=== PATIENT | female | born 1995 | race Caucasian/White ===

== ENCOUNTER 2017-01-18 10:04 | Inpatient (IN) | payer BC, OTHER ==
[~2017-01-18] VITALS: Ht 157.5 cm; Wt 77.3 kg
[2017-01-18] MEDS ORDERED: SODIUM CHLORIDE 0.9% 1,000ML IVBOLUS ONE (10:30)
[2017-01-18] MEDS ORDERED: SODIUM CHLORIDE FLUSH 10ML SYR IVF ONE (10:30)
[2017-01-18 11:05] LABS: HEMATOCRIT 34.3 % (34.6-47.8); HEMOGLOBIN 11.4 g/dL (11.7-16.4); WHITE BLOOD COUNT 16.7 x10^3/uL (3.4-10)
[2017-01-18 11:12] LABS: ASPARTATE AMINO TRANSFERASE 21 U/L (15-37); BLOOD UREA NITROGEN 6 mg/dL (7-18)
[2017-01-18] MEDS ORDERED: MISOPROSTOL 200 MCG TABLET ONE ×2 (11:48→13:37)
[2017-01-18] MEDS ORDERED: LACTATED RINGERS 1,000 ML IV SCH (12:41)
[2017-01-18] MEDS ORDERED: OXYTOCIN 30U/ 0.9% NaCL 500ML 500 ML IV ONE (12:41)
[2017-01-18] MEDS ORDERED: OXYTOCIN 30U/ 0.9% NaCL 500ML 500 ML IV PRN (12:41)
[2017-01-18] MEDS ORDERED: FENTANYL PF 100 MCG/2ML ONE ×2 (12:54→13:43)
[2017-01-18] MEDS ORDERED: MISOPROSTOL 200 MCG TABLET PR PRN (13:00)
[2017-01-18] MEDS ORDERED: FENTANYL PF 100 MCG/2ML IVPush ONE (13:00)
[2017-01-18] MEDS ORDERED: RHOGAM FROM BLOOD BANK 1 NOTE EA IM/IV PRN (13:00)
[2017-01-18] MEDS ORDERED: PREN1TAB60 PO (13:21)
[2017-01-18] MEDS ORDERED: FAMO20TA37 PO (13:22)
[2017-01-18 13:23] VITALS: BP 93/76
[2017-01-18] MEDS ORDERED: METHYLERGONOVINE 0.2 MG/ML IM ONE (13:38)
[2017-01-18] MEDS ORDERED: SILVER NITRATE STICK TP ONE (13:38)
[2017-01-18] MEDS ORDERED: OXYTOCIN 10 UNITS/ML, 1ML ONE ×2 (13:38→13:58)
[2017-01-18] MEDS ORDERED: PROPOFOL 10 MG/ML, 20ML ONE (13:43)
[2017-01-18] MEDS ORDERED: SUCCINYLCHOLINE 20 MG/ML, 10ML ONE (13:58)
[2017-01-18] MEDS ORDERED: ROCURONIUM 10 MG/ML ONE (13:58)
[2017-01-18] MEDS ORDERED: ONDANSETRON 2MG/ML, 2ML ONE (13:58)
[2017-01-18] MEDS ORDERED: OXYcodone 5 MG/5 ML ORAL.SOL UDC PO PRN (14:00)
[2017-01-18] MEDS ORDERED: PROMETHAZINE 25 MG/ML, 1ML IV PRN (14:00)
[2017-01-18] MEDS ORDERED: FENTANYL PF 100 MCG/2ML IV PRN (14:00)
[2017-01-18] MEDS ORDERED: ACETAMINOPHEN 325 MG TABLET PO PRN (14:00)
[2017-01-18] MEDS ORDERED: MEPERIDINE/PF 25MG/0.5ML IVPush PRN (14:00)
[2017-01-18] MEDS ORDERED: HYDROmorphone 1 MG/ML, 1ML IV PRN (14:00)
[2017-01-18] MEDS ORDERED: LABETALOL 5MG/ML, 20ML IV PRN (14:00)
[2017-01-18] MEDS ORDERED: ONDANSETRON 2MG/ML, 2ML IVPush PRN (14:00)
[2017-01-18] MEDS ORDERED: hydrALAzine 20 MG/ML, 1ML IV PRN (14:00)
[2017-01-18] MEDS ORDERED: DEXAMETHASONE 4 MG/ML, 1ML ONE (14:11)
[2017-01-18] MEDS ORDERED: CARBOPROST TROMETHAMINE 250 MCG/ML, 1ML IM ONE (14:21)
[2017-01-18] MEDS ORDERED: ACETAMINOPHEN 650 MG/20.3 ML UDC ONE (15:23)
[2017-01-18 15:44] LABS: HEMATOCRIT 24.5 % (34.6-47.8); HEMOGLOBIN 8.3 g/dL (11.7-16.4)
[2017-01-18 16:00] VITALS: BP 110/60
[2017-01-18 18:09] LABS: HEMATOCRIT 26.1 % (34.6-47.8); HEMOGLOBIN 8.6 g/dL (11.7-16.4); WHITE BLOOD COUNT 19.7 x10^3/uL (3.4-10)
[2017-01-18] MEDS ORDERED: OXYC-302 PO (21:26)
== END 2017-01-18 21:50 | disposition home or self-care (01) | DRG 770 ==
LOC: ED 12:24 → LDIP 12:26 → OBSVTOIN 12:41 → LDIP 16:13
PROVIDERS: ADMIT Obstetrics & Gynecology; ATTEND Obstetrics & Gynecology
PROC: 10D17ZZ Extraction of Products of Conception, Retained, Via Natural or Artificial Opening (ICD-10-PCS; principal; 2017-01-18 13:30)
DX: O03.4 Incomplete spontaneous abortion without complication (principal)
CPT/HCPCS: 36415; 59414; 76801; 80053; 85014; 85018; 85025; 86850; 86900; 88300; 88305; 96360; J1100; J2405; J2704; J3010; G0378; J0330; J2210; J2590; J7030; J7120